=== PATIENT | male | born 1980 | race Native Hawaiian/Other Pacific Islander ===

== ENCOUNTER 2017-04-16 23:56 | Emergency (ER) | payer SELFPAY ==
[2017-04-17 00:05] VITALS: RESP 16; TEMP 97.7
--- NOTE | 2017-04-17 00:36 | C.PDOC ---
History Of Present Illness 37yo male, presents to the ED for evaluation after a syncopal episode at home. Patient reports he drank a shot of whiskey and immediately felt unwell. The patient then went to the bathroom where he had a syncopal episode; during the fall, the patient hit the left side of his chin on the sink and hit the back of his head sustaining lacerations. The syncopal episode was witnessed by the patient's family, who report the patient was out for approximately 2 seconds. The patient currently offers no other medical complaints. Time Seen by Provider: 04/17/17 00:35 Chief Complaint (Nursing): Abnormal Skin Integrity History Per: Patient, Family History/Exam Limitations: no limitations Onset/Duration Of Symptoms: Mins Current Symptoms Are (Timing): Still Present Location Of Injury: Left: Head Past Medical History Reviewed: Historical Data, Nursing Documentation, Vital Signs Vital Signs: Last Vital Signs Temp 97.7 F 04/17/17 00:04 Pulse 79 04/17/17 00:04 Resp 16 04/17/17 00:04 BP 125/83 04/17/17 00:04 Pulse Ox 97 04/17/17 02:22 - Medical History PMH: No Chronic Diseases Surgical History: No Surg Hx Family History: States: Unknown Family Hx - Social History Hx Alcohol Use: Yes Hx Substance Use: No - Immunization History Hx Tetanus Toxoid Vaccination: Yes Hx Influenza Vaccination: No Hx Pneumococcal Vaccination: No Review Of Systems Constitutional: Negative for: Fever, Chills Eyes: Negative for: Redness ENT: Positive for: Other (laceration on left chin) Cardiovascular: Negative for: Chest Pain Respiratory: Negative for: Shortness of Breath Gastrointestinal: Negative for: Nausea, Vomiting, Abdominal Pain Genitourinary: Negative for: Dysuria Musculoskeletal: Negative for: Back Pain Skin: Positive for: Other (laceration chin and scalp). Negative for: Rash, Lesions Neurological: Positive for: Other (syncopal episode; laceration to left head). Negative for: Headache, Dizziness Psych: Negative for: Anxiety Physical Exam - Physical Exam Appears: Non-toxic, No Acute Distress Skin: Warm, Dry Head: Normacephalic, Laceration (3.5cm laceration to left temporal-occipital scalp) Eye(s): bilateral: Normal Inspection, PERRL, EOMI Oral Mucosa: Moist Neck: Trachea Midline, Supple Chest: Symmetrical Cardiovascular: Rhythm Regular Respiratory: No Decreased Breath Sounds, No Accessory Muscle Use Gastrointestinal/Abdominal: Soft, No Tenderness, No Distention Extremity: No Deformity, No Swelling Extremity: Bilateral: Atraumatic, Normal ROM Pulses: Left Dorsalis Pedis: Normal, Right Dorsalis Pedis: Normal Neurological/Psych: Oriented x3, Normal Speech, Normal Cognition, Normal Motor, Normal Sensation Gait: Steady ED Course And Treatment - Laboratory Results Result Diagrams: 04/17/17 00:46 04/17/17 00:46 ECG: Interpreted By Me, Viewed By Me ECG Rhythm: Sinus Rhythm (82), R BBB O2 Sat by Pulse Oximetry: 97 (RA) Pulse Ox Interpretation: Normal - CT Scan/US CT Head Other Rad Studies (CT/US): Read By Radiologist CT/US Interpretation: EXAM: CT Head Without Intravenous Contrast. CLINICAL HISTORY: 37 years old, male; Pain; Headache and other: Fall, laceration scalp. TECHNIQUE: Axial computed tomography images of the head/brain without intravenous contrast. All CT scans at. this facility use one or more dose reduction techniques, viz.: automated exposure control; ma/kV. adjustment per patient size (including targeted exams where dose is matched to indication; i.e. head);. or iterative reconstruction technique. COMPARISON: No relevant prior studies available. FINDINGS: Brain: Unremarkable. No significant white matter disease. No edema. No intracranial mass, mass. effect, or midline shift. Ventricles: Unremarkable. No ventriculomegaly. Bones/joints: Unremarkable. No acute fracture. Soft tissues: Unremarkable. Sinuses: Mild bilateral ethmoid sinus mucosal thickening. Mastoid air cells: Unremarkable as visualized. No mastoid effusion. IMPRESSION: 1. No acute intracranial abnormality. 2. Remainder of findings as above. CT Orbits Other Rad Studies (CT/US): Read By Radiologist CT/US Interpretation: EXAM: CT Maxillofacial Without Intravenous Contrast. CLINICAL HISTORY: 37 years old, male; Pain; Jaw pain and other: Laceration left chin; Additional info: Fall, laceration left. chin. TECHNIQUE: Axial computed tomography images of the face without intravenous contrast. All CT scans at this. facility use one or more dose reduction techniques, viz.: automated exposure control; ma/kV. adjustment per patient size (including targeted exams where dose is matched to indication; i.e. head);. or iterative reconstruction technique. Coronal and sagittal reformatted images were created and reviewed. COMPARISON: No relevant prior studies available. FINDINGS: Bones/joints: No acute fracture. Soft tissues: Unremarkable. Orbits: Unremarkable. Sinuses: Polypoid mucosal disease right maxillary sinus. Bilateral ethmoid sinus mucosal disease. No air-fluid levels. IMPRESSION: 1. No acute facial bone fracture. 2. Remainder of findings as above. Progress Note: CT Head, CT Orbits, Labs, IV Fluids ordered Reevaluation Time: 02:27 Reassessment Condition: Improved Laceration - Laceration Repair Left chin Wound Length (In cm): 4 Description Of Wound: Linear Wound Cleansed With: Betadine, Sterile Saline Anesthesia: Lidocaine 2%, With Epi Wound Closure: Suture (7) Suture Technique And Material Used: Interrupted, Prolene (4:0) Wound Complexity: Simple Left temporal-occipital scalp Wound Length (In cm): 5 Description Of Wound: Linear Wound Cleansed With: Betadine, Sterile Saline Anesthesia: Lidocaine 2%, With Epi Wound Closure: [place] (8) Suture Technique And Material Used: Interrupted Wound Complexity: Simple Disposition Counseled Patient/Family Regarding: Studies Performed, Diagnosis, Need For Followup - Disposition Referrals: [facility] [Outside] [facility] [Outside] Disposition Time: 00:35 Condition: FAIR Additional Instructions: Please have sutures and leandra removed in 7-10 days Instructions: Syncope (DC), Laceration (DC), Facial Laceration (ED) Forms: [facility] (Serbian) - Clinical Impression Clinical Impression: Vaso vagal episode, Laceration of scalp, Laceration of chin - Scribe Statement The provider has reviewed the documentation as recorded by the Robbie Clements Provider Attestation: All medical record entries made by the Robbie were at my direction and personally dictated by me. I have reviewed the chart and agree that the record accurately reflects my personal performance of the history, physical exam, medical decision making, and the department course for this patient. I have also personally directed, reviewed, and agree with the discharge instructions and disposition.
[2017-04-17] MEDS ORDERED: Sodium Chloride 0.9% 1,000 ML IV ONE (00:39)
[2017-04-17] MEDS ORDERED: Sodium Chloride 0.9% 1,000 ML ONE (00:48)
[2017-04-17 00:50] LABS: BASO # 0.1 K/uL (0.0-0.2); EOS # 0.5 K/uL (0.0-0.7); EOS % 4.7 % (0.0-4.0); HEMATOCRIT 46.1 % (35.0-51.0); LYMPH % 39.2 % (20.0-40.0); MEAN CELL VOLUME 84.5 fL (80.0-94.0); MEAN CORPUSCULAR HGB CONC 34.3 g/dL (33.0-37.0); MEAN PLATELET VOLUME 8.6 fL (7.2-11.7); MONO # 0.3 K/uL (0.0-0.8); MONO % 3.2 % (0.0-10.0); NRBC % 0.1 % (0.0-2.0); RED CELL DISTRIBUTION WIDTH 13.4 % (11.5-14.5); WHITE BLOOD COUNT 10.1 K/uL (4.8-10.8)
[2017-04-17 00:57] LABS: INR 0.9
[2017-04-17 01:03] LABS: CHLORIDE 102 mmol/L (98-107); POTASSIUM 3.8 mmol/L (3.6-5.2); SODIUM 138 mmol/L (132-148)
[2017-04-17 01:05] LABS: ALB/GLOB RATIO 1.3 (1.0-2.1); ALKALINE PHOSPHATASE 118 U/L (38-126); AST/SGOT 20 U/L (17-59); BILIRUBIN,TOTAL 0.6 mg/dL (0.2-1.3); CARBON DIOXIDE 24 mmol/L (22-30); GFR AFRICAN-AMERICAN > 60; TOTAL PROTEIN 7.3 g/dL (6.3-8.3)
[2017-04-17 01:06] LABS: ALCOHOL SERUM < 10 mg/dl (0-10); ALT/SGPT 38 U/L (21-72); BLOOD UREA NITROGEN 14 mg/dL (9-20); CALCIUM 8.5 mg/dl (8.6-10.4); GLUCOSE,RANDOM 190 mg/dL (75-110)
[2017-04-17] MEDS ORDERED: Lidocaine 2% w Epi 1:100,000 Inj IJ ONE (01:17)
--- NOTE | 2017-04-17 01:52 | CT ---
EXAM: CT Head Without Intravenous Contrast CLINICAL HISTORY: 37 years old, male; Pain; Headache and other: Fall, laceration scalp TECHNIQUE: Axial computed tomography images of the head/brain without intravenous contrast. All CT scans at this facility use one or more dose reduction techniques, viz.: automated exposure control; ma/kV adjustment per patient size (including targeted exams where dose is matched to indication; i.e. head); or iterative reconstruction technique. COMPARISON: No relevant prior studies available. FINDINGS: Brain: Unremarkable. No significant white matter disease. No edema. No intracranial mass, mass effect, or midline shift. Ventricles: Unremarkable. No ventriculomegaly. Bones/joints: Unremarkable. No acute fracture. Soft tissues: Unremarkable. Sinuses: Mild bilateral ethmoid sinus mucosal thickening. Mastoid air cells: Unremarkable as visualized. No mastoid effusion. IMPRESSION: 1. No acute intracranial abnormality. 2. Remainder of findings as above.
--- NOTE | 2017-04-17 02:09 | CT ---
EXAM: CT Maxillofacial Without Intravenous Contrast CLINICAL HISTORY: 37 years old, male; Pain; Jaw pain and other: Laceration left chin; Additional info: Fall, laceration left chin TECHNIQUE: Axial computed tomography images of the face without intravenous contrast. All CT scans at this facility use one or more dose reduction techniques, viz.: automated exposure control; ma/kV adjustment per patient size (including targeted exams where dose is matched to indication; i.e. head); or iterative reconstruction technique. Coronal and sagittal reformatted images were created and reviewed. COMPARISON: No relevant prior studies available. FINDINGS: Bones/joints: No acute fracture. Soft tissues: Unremarkable. Orbits: Unremarkable. Sinuses: Polypoid mucosal disease right maxillary sinus. Bilateral ethmoid sinus mucosal disease. No air-fluid levels. IMPRESSION: 1. No acute facial bone fracture. 2. Remainder of findings as above.
[2017-04-17 02:43] VITALS: BP 132/74; PULSE 74; O2SAT 98
--- NOTE | 2017-04-20 22:50 | CARD ---
APPROVED REPORT EKG Measurement Heart [id number] <Conclusion> Normal sinus rhythm Right bundle branch block Abnormal ECG
== END 2017-04-17 02:42 | disposition home or self-care (01) ==
LOC: C.ER 23:56
DX: R55 Syncope and collapse (principal); S01.01XA Laceration without foreign body of scalp, initial encounter; S01.81XA Laceration without foreign body of other part of head, initial encounter; W01.198A Fall on same level from slipping, tripping and stumbling with subsequent striking against other object, initial encounter; Y93.E8 Activity, other personal hygiene; Y92.89 Other specified places as the place of occurrence of the external cause
CPT/HCPCS: 12015; 70450; 70480; 80053; 84484; 85025; 85610; 85730; 96360; 99284; G0480; J7040

== ENCOUNTER 2017-04-25 12:32 | Emergency (ER) | payer SELFPAY ==
[2017-04-25 12:43] VITALS: BP 144/93; PULSE 85; RESP 18; TEMP 98; O2SAT 99
[2017-04-25] MEDS ORDERED: Bacitracin 500 Units/gm Oint Foilpak UD ONE (13:04)
--- NOTE | 2017-04-25 13:06 | C.PDOC ---
History Of Present Illness 04/25/2017 John Yousif is a 37 y/o male who presents to the ED for suture and staple removal after laceration that was done 04/17/2017. Patient denies any fever, or complications. Time Seen by Provider: 04/25/17 12:50 Chief Complaint (Nursing): Suture/Staple Removal History Per: Patient History/Exam Limitations: no limitations Onset/Duration Of Symptoms: Laceration (on 04/17/2017. Comes in for suture and staple removal) Current Symptoms Are (Timing): Better Location Of Injury: Left: Face (7 sutures on left side of chin ), Head (8 leandra left peripheral scalp ) Quality Of Symptoms: denies: Swollen, Draining Past Medical History Reviewed: Historical Data, Nursing Documentation, Vital Signs Vital Signs: Last Vital Signs Temp 98 F 04/25/17 12:41 Pulse 85 04/25/17 12:41 Resp 18 04/25/17 12:41 BP 144/93 H 04/25/17 12:41 Pulse Ox 99 04/25/17 13:16 Family History: States: Unknown Family Hx - Social History Hx Alcohol Use: Yes Hx Substance Use: No - Immunization History Hx Tetanus Toxoid Vaccination: Yes Hx Influenza Vaccination: No Hx Pneumococcal Vaccination: No Review Of Systems Constitutional: Negative for: Fever Respiratory: Negative for: Shortness of Breath Gastrointestinal: Negative for: Vomiting Skin: Positive for: Other (staple and suture removal on chin and left side of head) Neurological: Negative for: Headache Physical Exam - Physical Exam Appears: Well, Non-toxic, No Acute Distress Skin: Normal Color, Warm, Dry, Other (7 sutures to left side of chin and 8 leandra to left side of parietal scalp) Head: Atraumatic, Normacephalic Extremity: Normal ROM Neurological/Psych: Oriented x3, Normal Speech Gait: Steady ED Course And Treatment O2 Sat by Pulse Oximetry: 99 (room air) Pulse Ox Interpretation: Normal Medical Decision Making Medical Decision Makin04/25/2017 Impression: Patient comes in for removal of leandra and sutures. Progress Notes: 7 sutures to left side of chin were removed and 8 leandra were removed on left side of scalp. No complications, difficulties, or complaints from patient. Disposition Counseled Patient/Family Regarding: Need For Followup - Disposition Disposition: HOME/ ROUTINE Disposition Time: 13:06 Condition: STABLE Instructions: Stitches Removal (ED) Forms: [facility] (Polish) - POA Present On Arrival: None - Clinical Impression Clinical Impression: Removal of suture, Removal of leandra - Scribe Statement The provider has reviewed the documentation as recorded by the Scribe 04/25/2017 Scribe Attestation: Lien Stone MD Scribe Attestation: All medical record entries made by the Scribe were at my direction and personally dictated by me. I have reviewed the chart and agree that the record accurately reflects my personal performance of the history, physical exam, medical decision making, and the department course for this patient. I have also personally directed, reviewed, and agree with the discharge instructions and disposition.
== END 2017-04-25 13:23 | disposition home or self-care (01) ==
LOC: C.ER 12:32
DX: Z48.02 Encounter for removal of sutures (principal)